=== PATIENT | male | born 1955 | race Caucasian/White ===

== ENCOUNTER 2020-07-21 07:48 | Observation (INO) ==
[2020-07-21] MEDS ORDERED: Aspirin 81 MG TAB.CHEW PO ONE (07:58)
[2020-07-21] MEDS ORDERED: Ipratropium/Albuterol Neb 3 ML IH ONE (08:07)
[2020-07-21] MEDS ORDERED: methylPREDNISolone 125 MG/2 ML VIAL IVP ONE (08:07)
[2020-07-21 09:19] LABS: Basophils # 0.1 K/mcL (0.0-0.2); Basophils % 1.4 %; Eosinophils # 0.1 K/mcL (0.0-0.6); Eosinophils % 0.7 %; Hematocrit 47.9 % (37.5-50.1); Hemoglobin 16.4 g/dL (12.9-16.9); Immature Granulocytes % 0.4 % (0-4); Lymphocytes # 1.2 K/mcL (0.6-4.6); Mean Corpuscular HGB Conc 34.2 g/dL (31.6-35.5); Mean Corpuscular Hemoglobin 30.8 pg (28.0-33.3); Mean Corpuscular Volume 89.9 fL (83.0-100.0); Mean Platelet Volume 9.8 fL (9.4-12.4); Monocytes % 9.8 %; Neutrophils # 7.6 K/mcL (1.6-8.9); Platelet Count 229 K/mcL (140-400); Red Blood Count 5.33 M/mcL (4.19-5.50); Red Cell Distribution Width 14.1 % (11.5-14.5); Segmented Neutrophils % 75.7 %; White Blood Count 10.1 K/mcL (4.3-11.1)
[2020-07-21 09:30] LABS: Activated Partial Thrombo Time 24.3 Seconds (26.0-36.0)
[2020-07-21] MEDS ORDERED: Azithromycin 500 MG in 0.9 % Sodium Chloride 250 ML IVPB ONE (09:31)
[2020-07-21 09:39] LABS: BUN/Creatinine Ratio 11 (6-26); Blood Urea Nitrogen 7 mg/dL (8-23); Calcium 8.3 mg/dL (8.6-10.3); Carbon Dioxide 26 mEq/L (23-29); Chloride 101 mEq/L (98-107); Glucose 103 mg/dL (70-105); Osmolality,Calculated 278 (280-300); Potassium 4.3 mEq/L (3.5-5.1); Sodium 135 mEq/L (136-145); eGFR For African Americans > 60 (> 60); eGFR For Non-African Americans > 60 (> 60)
[2020-07-21 09:50] LABS: Troponin I 0.66 ng/mL (< 0.04)
[2020-07-21] MEDS ORDERED: *HR* Heparin 5,000 UNIT/ML VIAL IVP PRN ×2 (09:58)
[2020-07-21] MEDS ORDERED: *HR* Heparin 5,000 UNIT/ML VIAL IVP ONE (09:58)
[2020-07-21 11:00] LABS: Hematocrit 47.8 % (37.5-50.1); Hemoglobin 15.9 g/dL (12.9-16.9); Mean Corpuscular HGB Conc 33.3 g/dL (31.6-35.5); Mean Corpuscular Hemoglobin 29.9 pg (28.0-33.3); Mean Platelet Volume 9.7 fL (9.4-12.4); Platelet Count 211 K/mcL (140-400); Red Blood Count 5.31 M/mcL (4.19-5.50); Red Cell Distribution Width 13.9 % (11.5-14.5); White Blood Count 9.3 K/mcL (4.3-11.1)
[2020-07-21 11:08] LABS: Heparin anti-factor XA UFH 0.08 IU/mL (0.30-0.70); Prothrombin Time 11.3 Seconds (9.4-12.1)
[2020-07-21] MEDS: Heparin 25,000UNIT/250ML 1/2NS 25,000 UNIT/250 ML IV.SOLN IVC SCH (11:19)
[2020-07-21] MEDS ORDERED: Naloxone 0.4 MG/ML INJ IVP PRN (11:40)
[2020-07-21] MEDS ORDERED: *HR* LORazepam 2 MG/ML VIAL IVP PRN ×2 (11:42)
[2020-07-21] MEDS ORDERED: Furosemide 20 MG/2 ML VIAL IVP ONE (13:07)
[2020-07-21] MEDS ORDERED: Perflutren Lipid Microsphere 1.3 ML in 0.9 % Sodium Chloride 8.7 ML IVP PRN (13:46)
[2020-07-21 14:14] LABS: Magnesium 1.9 mg/dL (1.6-2.6)
[2020-07-21 14:19] LABS: Troponin I 0.68 ng/mL (< 0.04)
[2020-07-21] MEDS: carvediloL 25 MG TABLET PO SCH (15:09)
[2020-07-21] MEDS: *HR* LORazepam 0.5 MG TABLET PO SCH ×2 (15:09→20:26)
[2020-07-21] MEDS: Ondansetron 4 MG/2 ML VIAL IVP PRN (18:10)
[2020-07-21] MEDS: Acetaminophen 325 MG TABLET PO PRN (18:10)
[2020-07-21] MEDS: DilTIAZem CD (24hr) 240 MG CAP.ER.24H PO SCH (20:26)
[2020-07-22 01:00] LABS: Basophils % 0.4 %; Hematocrit 46.7 % (37.5-50.1); Hemoglobin 15.7 g/dL (12.9-16.9); Immature Granulocytes % 0.6 % (0-4); Lymphocytes # 0.5 K/mcL (0.6-4.6); Lymphocytes % 7.3 %; Mean Corpuscular HGB Conc 33.6 g/dL (31.6-35.5); Mean Corpuscular Volume 89.1 fL (83.0-100.0); Mean Platelet Volume 9.6 fL (9.4-12.4); Monocytes # 0.3 K/mcL (0.0-1.3); Monocytes % 4.8 %; Platelet Count 208 K/mcL (140-400); Red Blood Count 5.24 M/mcL (4.19-5.50); Red Cell Distribution Width 13.5 % (11.5-14.5); Segmented Neutrophils % 86.9 %; White Blood Count 6.9 K/mcL (4.3-11.1)
[2020-07-22 01:15] LABS: BUN/Creatinine Ratio 27 (6-26); Blood Urea Nitrogen 20 mg/dL (8-23); Calcium 9.1 mg/dL (8.6-10.3); Carbon Dioxide 21 mEq/L (23-29); Chloride 101 mEq/L (98-107); Glucose 212 mg/dL (70-105); Osmolality,Calculated 285 (280-300); Potassium 3.8 mEq/L (3.5-5.1); Sodium 133 mEq/L (136-145); eGFR For African Americans > 60 (> 60); eGFR For Non-African Americans > 60 (> 60)
[2020-07-22 01:19] LABS: Troponin I 0.51 ng/mL (< 0.04)
[2020-07-22] MEDS: Furosemide 20 MG/2 ML VIAL IVP SCH ×2 (07:35→19:53)
[2020-07-22] MEDS: Valsartan 80 MG TABLET PO SCH (07:36)
[2020-07-22] MEDS: carvediloL 25 MG TABLET PO SCH ×2 (07:36→16:26)
[2020-07-22] MEDS: Aspirin Enteric Coated 81 MG Tablet PO SCH (07:36)
[2020-07-22] MEDS: DilTIAZem CD (24hr) 240 MG CAP.ER.24H PO SCH (07:36)
[2020-07-22] MEDS: Isosorbide MONOnitrate (24 HR) 30 MG TAB.ER.24H PO SCH (07:36)
[2020-07-22] MEDS: *HR* LORazepam 0.5 MG TABLET PO SCH ×3 (07:36→19:53)
[2020-07-22] MEDS: Heparin 25,000UNIT/250ML 1/2NS 25,000 UNIT/250 ML IV.SOLN IVC SCH (07:38)
[2020-07-22] MEDS ORDERED: NON-FORMULARY MEDICATION 1 EACH EACH (Ezetimibe [Zetia] 10 MG Tablet) PO SCH (09:00)
[2020-07-22] MEDS ORDERED: DilTIAZem CD (24hr) 240 MG CAP.ER.24H PO SCH (09:00)
[2020-07-22] MEDS ORDERED: Azithromycin 250 MG TABLET PO ONE (10:36)
[2020-07-22] MEDS ORDERED: D5% in Water 1,000 ML IVC PRN (10:39)
[2020-07-22] MEDS ORDERED: *HR* Dextrose 50 % in Water (Vial) 50 ML VIAL IVP PRN (10:39)
[2020-07-22] MEDS ORDERED: Dextrose Gel 15 GM/37.5 ML TUBE PO PRN ×2 (10:39)
[2020-07-22] MEDS ORDERED: Azithromycin 250 MG TABLET PO SCH (10:45)
[2020-07-22] MEDS: Insulin LISPRO 300 UNITS/3 ML VIAL SUBQ SCH ×3 (11:26→19:50)
[2020-07-22] MEDS: Folic Acid 1 MG TABLET PO SCH (12:03)
[2020-07-22] MEDS: Thiamine (B-1) 100 MG TABLET PO SCH (12:03)
[2020-07-22 12:35] LABS: Estimated Average Glucose 120 mg/dl; Hemoglobin A1C 5.8 %
[2020-07-22] MEDS: *HR* LORazepam 2 MG/ML VIAL IVP PRN ×2 (13:34→22:03)
[2020-07-23 02:01] LABS: BUN/Creatinine Ratio 22 (6-26); Blood Urea Nitrogen 17 mg/dL (8-23); Calcium 8.8 mg/dL (8.6-10.3); Carbon Dioxide 27 mEq/L (23-29); Chloride 101 mEq/L (98-107); Glucose 116 mg/dL (70-105); Osmolality,Calculated 287 (280-300); Potassium 3.4 mEq/L (3.5-5.1); Sodium 137 mEq/L (136-145); eGFR For African Americans > 60 (> 60); eGFR For Non-African Americans > 60 (> 60)
[2020-07-23] MEDS: *HR* LORazepam 0.5 MG TABLET PO SCH ×3 (08:23→20:25)
[2020-07-23] MEDS: Valsartan 80 MG TABLET PO SCH (08:23)
[2020-07-23] MEDS: Thiamine (B-1) 100 MG TABLET PO SCH (08:24)
[2020-07-23] MEDS: Folic Acid 1 MG TABLET PO SCH (08:24)
[2020-07-23] MEDS: DilTIAZem CD (24hr) 240 MG CAP.ER.24H PO SCH (08:24)
[2020-07-23] MEDS: Aspirin Enteric Coated 81 MG Tablet PO SCH (08:24)
[2020-07-23] MEDS: Ondansetron 4 MG/2 ML VIAL IVP PRN (08:24)
[2020-07-23] MEDS: Insulin LISPRO 300 UNITS/3 ML VIAL SUBQ SCH ×4 (08:25→20:25)
[2020-07-23] MEDS: Isosorbide MONOnitrate (24 HR) 30 MG TAB.ER.24H PO SCH (08:25)
[2020-07-23] MEDS: carvediloL 25 MG TABLET PO SCH ×2 (08:25→17:58)
[2020-07-23] MEDS: Azithromycin 250 MG TABLET PO SCH (08:26)
[2020-07-23] MEDS: Furosemide 20 MG/2 ML VIAL IVP SCH ×2 (08:26→20:25)
[2020-07-23] MEDS ORDERED: Valsartan 80 MG TABLET PO ONE (08:59)
[2020-07-23] MEDS ORDERED: *HR* Midazolam HCl 2 MG/2 ML VIAL ONE (15:23)
[2020-07-23] MEDS ORDERED: *HR* FentaNYL (PF) 100 MCG/2 ML VIAL ONE (15:23)
[2020-07-23] MEDS ORDERED: 0.9 % Sodium Chloride 2,000 ML ONE (15:24)
[2020-07-23] MEDS ORDERED: ISOVUE-370 200 ML INFUS..BTL ONE ×2 (15:24→16:12)
[2020-07-23] MEDS ORDERED: Heparin 1,000 UNITS/500 mL 500 ML ONE (15:24)
[2020-07-23] MEDS ORDERED: Nitroglycerin 1,000 MCG/5 ML VIAL IV ONE (15:24)
[2020-07-23] MEDS ORDERED: *HR* Heparin 10,000 UNIT/10 ML VIAL ONE (15:24)
[2020-07-23] MEDS: 0.9 % Sodium Chloride 1,000 ML IVC SCH (19:16)
[2020-07-24] MEDS: Ondansetron 4 MG/2 ML VIAL IVP PRN ×2 (00:02→08:17)
[2020-07-24] MEDS: Acetaminophen 325 MG TABLET PO PRN (00:02)
[2020-07-24 01:35] LABS: Hematocrit 41.3 % (37.5-50.1)
[2020-07-24 01:36] LABS: Hemoglobin 14.1 g/dL (12.9-16.9)
[2020-07-24 01:55] LABS: BUN/Creatinine Ratio 22 (6-26); Blood Urea Nitrogen 20 mg/dL (8-23); Calcium 8.4 mg/dL (8.6-10.3); Carbon Dioxide 25 mEq/L (23-29); Chloride 102 mEq/L (98-107); Glucose 133 mg/dL (70-105); Osmolality,Calculated 285 (280-300); Potassium 3.6 mEq/L (3.5-5.1); Sodium 135 mEq/L (136-145); eGFR For African Americans > 60 (> 60); eGFR For Non-African Americans > 60 (> 60)
[2020-07-24] MEDS: 0.9 % Sodium Chloride 1,000 ML IVC SCH (02:42)
[2020-07-24 08:10] VITALS: BP 156/81
[2020-07-24] MEDS: Azithromycin 250 MG TABLET PO SCH (08:13)
[2020-07-24] MEDS: Thiamine (B-1) 100 MG TABLET PO SCH (08:13)
[2020-07-24] MEDS: Insulin LISPRO 300 UNITS/3 ML VIAL SUBQ SCH (08:15)
[2020-07-24] MEDS: Aspirin Enteric Coated 81 MG Tablet PO SCH (08:15)
[2020-07-24] MEDS: *HR* LORazepam 0.5 MG TABLET PO SCH (08:16)
[2020-07-24] MEDS: Folic Acid 1 MG TABLET PO SCH (08:16)
[2020-07-24] MEDS: carvediloL 25 MG TABLET PO SCH (08:16)
[2020-07-24] MEDS: DilTIAZem CD (24hr) 240 MG CAP.ER.24H PO SCH (08:16)
[2020-07-24] MEDS: Isosorbide MONOnitrate (24 HR) 30 MG TAB.ER.24H PO SCH (08:16)
[2020-07-24] MEDS: Furosemide 20 MG/2 ML VIAL IVP SCH (08:17)
[2020-07-24] MEDS ORDERED: Valsartan 80 MG TABLET PO SCH (09:00)
== END 2020-07-24 12:56 | disposition home or self-care (01) ==
LOC: 2ANU 07:48 → EMEROOARM 07:48 → SUATTDRO 10:45 → 2ANU 12:15
PROVIDERS: ADMIT Internal Medicine; ATTEND General Practice